=== PATIENT | male | born 1995 | race Caucasian/White ===

== ENCOUNTER 2017-09-09 20:38 | Emergency (ER) | payer OTHER, SELFPAY ==
[2017-09-09 20:39] VITALS: BP 120/84; PULSE 85; RESP 15; TEMP 36.2; O2SAT 97; BMI 24.7
--- NOTE | 2017-09-09 21:45 | ED.VISSUMM ---
- ER Visit Summary Date of Service: 09/09/17 Chief Complaint: Painful sores lip, gums, tongue and posterior pharynx History of Present Illness: The patient is a 22 M who presents with painful lesions as previously described. He also complains of epigastric pain. He is seen at [facility] for interstitial lung disease and EO. He was placed on Viscous Xylocaine. He had a throat swab which was negative for strep. He denies fever, chills night sweats. Eyes headache photophobia sips of his neck or neck pain. He has no other complaints. Physical Examination: Vital signs are normal. HEENT exam is remarkable for HSV. Neck is remarkable for cervical lymphadenopathy. Heart is regular without murmur, gallop or rub. S1 and S2 are normal. Lungs are clear to auscultation with good movement of air bilaterally. He has minimal epigastric discomfort. The remainder of exam is unremarkable. Test Results: None are indicated patient has classic lesions for HSV. Emergency Department Course and Treatment: Since all pharmacies are closed the hospital pharmacy was contacted to make 2 ounces of Magic mouthwash and he was given a Carafate slurry for his epigastric discomfort. Treatment Plan: Magic mouthwash, symptomatic treatment, Carafate slurry's Disposition: Discharged to home prescription for Carafate and Magic mouthwash Impression: 1. 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 It may contain incorrect words, spelling, and punctuation that were not noted in review of the chart prior to signing ED Disposition - Plan for ED Patient: Disposition: Home or Assisted Living Chief Complaint: Sore Throat Instructions: ED Herpes Simplex Virus Type 1 Prescriptions: Sucralfate [Carafate] 1 gm PO 4X/DAY #30 tab Referrals: Ricardo Quick MD [Primary Care Provider] - 10-14 Days if not better
--- NOTE | 2017-09-09 21:58 | ED.DCSUM_ITS ---
- ER Visit Summary Date of Service: 09/09/17 Chief Complaint: Painful sores lip, gums, tongue and posterior pharynx History of Present Illness: The patient is a 22 M who presents with painful lesions as previously described. He also complains of epigastric pain. He is seen at [facility] for interstitial lung disease and EO. He was placed on Viscous Xylocaine. He had a throat swab which was negative for strep. He denies fever, chills night sweats. Eyes headache photophobia sips of his neck or neck pain. He has no other complaints. Physical Examination: Vital signs are normal. HEENT exam is remarkable for HSV. Neck is remarkable for cervical lymphadenopathy. Heart is regular without murmur, gallop or rub. S1 and S2 are normal. Lungs are clear to auscultation with good movement of air bilaterally. He has minimal epigastric discomfort. The remainder of exam is unremarkable. Test Results: None are indicated patient has classic lesions for HSV. Emergency Department Course and Treatment: Since all pharmacies are closed the hospital pharmacy was contacted to make 2 ounces of Magic mouthwash and he was given a Carafate slurry for his epigastric discomfort. Treatment Plan: Magic mouthwash, symptomatic treatment, Carafate slurry's Disposition: Discharged to home prescription for Carafate and Magic mouthwash Impression: 1. Herpes simplex virus type I initial outbreak This note was generated with [employer] dictation software. It may contain incorrect words, spelling, and punctuation that were not noted in review of the chart prior to signing ED Disposition - Plan for ED Patient: Disposition: Home or Assisted Living Chief Complaint: Sore Throat Instructions: ED Herpes Simplex Virus Type 1 Prescriptions: Sucralfate [Carafate] 1 gm PO 4X/DAY #30 tab Referrals: Ricardo Quick MD [Primary Care Provider] - 10-14 Days if not better
[2017-09-09] MEDS: Sucralfate 1 GM Tablet PO (22:16)
[2017-09-09 22:20] VITALS: PULSE 80; RESP 18
== END 2017-09-09 22:22 | disposition home or self-care (01) ==
LOC: ED 22:04
PROVIDERS: Emergency Provider Emergency Medicine; Family Provider Family Medicine; PCP Family Medicine
DX: B00.1 Herpesviral vesicular dermatitis (principal)
CPT/HCPCS: 99283